=== PATIENT | male | born 1945 | race Caucasian/White ===

== ENCOUNTER → 2018-05-07 | Outpatient (CLI) | payer MEDICARE, BC | END | disposition home or self-care (01) | LOC: VAS 15:00 | DX: I73.9 Peripheral vascular disease, unspecified (principal) | CPT/HCPCS: 93922 ==

== ENCOUNTER 2018-09-07 13:58 | Inpatient (IN) | payer MEDICARE, BC ==
[2018-09-07] MEDS: ONDANSETRON 4 MG INJ IV (15:09)
[2018-09-07] MEDS: DIPHTH/TET/ACEL PERTUSS (ADULT) 0.5 ML VIAL IM* (15:10)
[2018-09-07 15:31] LABS: ADD MAN DIFF? NO
[2018-09-07 15:40] LABS: WHITE BLOOD COUNT 6.7 10^3/ul (4.8-10.8)
[2018-09-07 15:40] LABS: BASOPHIL # 0.1 10^3/ul (0.0-0.1); BASOPHILS % 0.9 % (0.0-2.0); EOSINOPHILS # 0.2 10^3/ul (0.0-0.5); EOSINOPHILS % 2.8 % (0.0-7.0); HEMATOCRIT 41.4 % (42.0-52.0); HEMOGLOBIN 13.7 g/dl (14.0-18.0); LYMPHOCYTES # 1.2 10^3/ul (0.8-2.9); LYMPHOCYTES % 18.3 % (15.0-51.0); MEAN CORPUSCULAR HEMOGLOBIN 30.9 pg (29.0-33.0); MEAN CORPUSCULAR HGB CONC 33.1 g/dl (32.0-37.0); MEAN CORPUSCULAR VOLUME 93.2 fl (82.0-101.0); MONOCYTE # 0.4 10^3/ul (0.3-0.9); MONOCYTES % 6.3 % (0.0-11.0); NEUTROPHIL # 4.8 10^3/ul (1.6-7.5); NEUTROPHILS % 71.3 % (39.0-77.0); PLATELET COUNT 210 10^3/UL (140-415); RED BLOOD COUNT 4.44 10^6/ul (4.70-6.10); RED CELL DISTRIBUTION WIDTH 11.7 % (11.5-14.5)
[2018-09-07 15:43] LABS: INR 0.94; PARTIAL THROMBOPLASTIN TIME 27.2 Sec (23.0-35.0); PROTIME 12.7 Sec (11.9-14.9)
[2018-09-07 15:44] LABS: ANION GAP 9 (5-13); BLOOD UREA NITROGEN 26 mg/dl (7-20); CALCIUM 9.5 mg/dl (8.4-10.2); CARBON DIOXIDE 30 mmol/L (21-31); CHLORIDE 98 mmol/L (97-110); CREATININE 1.67 mg/dl (0.61-1.24); GLUCOSE 119 mg/dl (70-220); POTASSIUM 5.1 mmol/L (3.5-5.1); SODIUM 137 mmol/L (135-144)
[2018-09-07] MEDS: SODIUM CHLORIDE 0.9% 1L IRRIG IRR (16:35)
[2018-09-07] MEDS: LIDOCAINE 2%/EPI MPF (SDV) 20 ML VIAL INJ (16:35)
[2018-09-07] MEDS ORDERED: ZOLPIDEM 5 MG TAB PO (17:30)
[2018-09-07] MEDS ORDERED: NITROGLYCERIN (SL) 0.4 MG TAB SL (17:30)
[2018-09-07] MEDS ORDERED: ACETAMINOPHEN 325 MG TAB PO (17:30)
[2018-09-07] MEDS ORDERED: DOCUSATE SODIUM 100 MG CAP PO (17:30)
[2018-09-07] MEDS ORDERED: ONDANSETRON 4 MG INJ IV (17:30)
[2018-09-07] MEDS ORDERED: LORAZEPAM 2 MG INJ IV (17:30)
[2018-09-07] MEDS: 1/2 NS + KCL 20 MEQ 1,000 ML IV (18:45)
[2018-09-07] MEDS ORDERED: ROPINIROLE 1 MG TAB PO (21:00)
[2018-09-07] MEDS: ROPINIROLE 1 MG TAB PO (23:00)
[2018-09-07] MEDS: traZODone 100 MG TAB PO (23:01)
[2018-09-07] MEDS: PREGABALIN 75 MG CAP PO (23:02)
[2018-09-08 06:26] LABS: ADD MAN DIFF? NO
[2018-09-08 06:32] LABS: WHITE BLOOD COUNT 7.9 10^3/ul (4.8-10.8)
[2018-09-08 06:32] LABS: BASOPHIL # 0.1 10^3/ul (0.0-0.1); BASOPHILS % 0.6 % (0.0-2.0); EOSINOPHILS # 0.2 10^3/ul (0.0-0.5); EOSINOPHILS % 2.3 % (0.0-7.0); HEMATOCRIT 36.6 % (42.0-52.0); HEMOGLOBIN 12.2 g/dl (14.0-18.0); LYMPHOCYTES # 1.3 10^3/ul (0.8-2.9); LYMPHOCYTES % 16.3 % (15.0-51.0); MEAN CORPUSCULAR HEMOGLOBIN 31.4 pg (29.0-33.0); MEAN CORPUSCULAR HGB CONC 33.3 g/dl (32.0-37.0); MEAN CORPUSCULAR VOLUME 94.1 fl (82.0-101.0); MEAN PLATELET VOLUME 9.9 fl (7.4-10.4); MONOCYTE # 0.6 10^3/ul (0.3-0.9); MONOCYTES % 6.9 % (0.0-11.0); NEUTROPHIL # 5.8 10^3/ul (1.6-7.5); NEUTROPHILS % 73.6 % (39.0-77.0); PLATELET COUNT 180 10^3/UL (140-415); RED BLOOD COUNT 3.89 10^6/ul (4.70-6.10); RED CELL DISTRIBUTION WIDTH 11.7 % (11.5-14.5)
[2018-09-08 06:57] LABS: ALANINE AMINOTRANSFERASE 23 IU/L (13-69); ALBUMIN 3.4 g/dl (3.3-4.9); ALBUMIN/GLOBULIN RATIO 1.17; ALKALINE PHOSPHATASE 84 IU/L (42-121); ANION GAP 6 (5-13); ASPARTATE AMINO TRANSFERASE 26 IU/L (15-46); BILIRUBIN,INDIRECT 0.4 mg/dl (0-1.1); BILIRUBIN,TOTAL 0.4 mg/dl (0.2-1.3); BLOOD UREA NITROGEN 21 mg/dl (7-20); CALCIUM 8.9 mg/dl (8.4-10.2); CARBON DIOXIDE 28 mmol/L (21-31); CHLORIDE 103 mmol/L (97-110); CREATININE 1.57 mg/dl (0.61-1.24); GLUCOSE 117 mg/dl (70-220); POTASSIUM 4.7 mmol/L (3.5-5.1); SODIUM 137 mmol/L (135-144); TOTAL PROTEIN 6.3 g/dl (6.1-8.1)
[2018-09-08 06:58] LABS: HEMOGLOBIN A1C 4.9 % (0-5.9)
[2018-09-08] MEDS: ATENOLOL 25 MG TAB PO (09:00)
== END 2018-09-08 18:53 | disposition home or self-care (01) | DRG 87 ==
LOC: TEL 09-08 04:48 → E/R 13:58 → TEL 16:37
PROC: 08QNXZZ Repair Right Upper Eyelid, External Approach (ICD-10-PCS; principal; 2018-09-07)
DX: S06.5X0A Traumatic subdural hemorrhage without loss of consciousness, initial encounter (principal); W01.10XA Fall on same level from slipping, tripping and stumbling with subsequent striking against unspecified object, initial encounter; I25.10 Atherosclerotic heart disease of native coronary artery without angina pectoris; Z95.1 Presence of aortocoronary bypass graft; E78.5 Hyperlipidemia, unspecified; I73.9 Peripheral vascular disease, unspecified; E07.9 Disorder of thyroid, unspecified; S00.03XA Contusion of scalp, initial encounter; S01.111A Laceration without foreign body of right eyelid and periocular area, initial encounter; M48.02 Spinal stenosis, cervical region
CPT/HCPCS: 36415; 70450; 70486; 72125; 80048; 80053; 83036; 85025; 85610; 85730; 90471; 90715; 96374; 97116; 97161; 99285-25; G0378

== ENCOUNTER → 2018-09-29 | Outpatient (CLI) | payer MEDICARE, BC | END | disposition home or self-care (01) | LOC: C/S 14:49 | DX: M25.521 Pain in right elbow (principal); R22.31 Localized swelling, mass and lump, right upper limb | CPT/HCPCS: 73200 ==